=== PATIENT | male | born 1970 | race Caucasian/White ===

== ENCOUNTER 2022-06-30 09:10 | Outpatient (CLI) | payer BC, SELFPAY | END 2022-06-30 23:59 | disposition home or self-care (01) | PROVIDERS: Visit Provider Otolaryngology | DX: R05.1 Acute cough (principal) | CPT/HCPCS: 87070; 87205 ==

== ENCOUNTER → 2022-08-15 | Outpatient (CLI) | payer BC, SELFPAY ==
--- NOTE | 2022-08-15 07:09 | CT_ITS ---
STUDY: CT MAXILLOFACIAL SINUSES REASON FOR EXAM: Male, 52 years old. CHRONIC SINUSITIS RADIATION DOSAGE (If Supplied By Facility): CTDIvol = ( 28.14 ) mGy, DLP = ( 696.94 ) mGycm TECHNIQUE: The patient was scanned in a multi detector CT scanner. High resolution axial imaging was performed without the administration of intravenous contrast material. Sagittal and coronal images were reconstructed. Individualized dose optimization techniques were used for this CT. COMPARISON: None. FINDINGS: FRONTAL SINUSES: Small mucous retention cyst in the right frontal sinus. Otherwise normal frontal sinuses. ETHMOIDAL SINUSES: Normal aeration, without mucosal inflammatory disease. MAXILLARY SINUSES: Normal aeration, without mucosal inflammatory disease. SPHENOIDAL SINUSES: Normal aeration, without mucosal inflammatory disease. There is patency of the bilateral maxillary infundibuli with normal uncinate processes, ethmoid bullae, and hiatus semilunaris. Normal bilateral middle turbinates. Normal bilateral inferior turbinates. Mild right nasal septal deviation with a small right horizontal nasal septal spur. There is patency of the bilateral nasal airways. The visualized osseous structures are normal. The visualized bilateral orbital contents are normal. CT/Sinus/Facial Bone IMPRESSION: 1. No CT evidence of acute or chronic sinusitis. 2. Bilaterally patent ostiomeatal units. Electronically Signed: Ed Rockwell MD at 8:23 EST ,
== END | disposition home or self-care (01) ==
PROVIDERS: Visit Provider Otolaryngology
DX: J32.8 Other chronic sinusitis (principal); J34.2 Deviated nasal septum; J34.1 Cyst and mucocele of nose and nasal sinus
CPT/HCPCS: 70486